=== PATIENT | female | born 1985 | race Caucasian/White ===

== ENCOUNTER 2017-07-01 09:05 | Emergency (ER) | payer SELFPAY ==
--- NOTE | 2017-07-01 10:20 | UC ---
Respiratory Complaint HPI - HPI Summary HPI Summary: 31 y/o female with presistent cough x 6 weeks, no improvement, chills/ low grade fevers nightly, + sinus pain/ congestion at night, no SOB, cough non- porductive. no other medication history. no recent ABX - History of Current Complaint Stated Complaint: COUGH Time Seen by Provider: 07/01/17 10:19 Hx Obtained From: Patient Hx Last Menstrual Period: 04/01/2014 ?: No Onset/Duration: Gradual Onset, Lasting Weeks Severity Initially: Moderate Severity Currently: Moderate - Allergies/Home Medications Allergies/Adverse Reactions: Allergies Allergy/AdvReac Type Severity Reaction Status Date / Time MS Amoxicillin [Amoxicillin] Allergy Intermediate Rash Verified 07/01/17 10:21 MS Sulfa Antibiotics Allergy Intermediate Rash Verified 07/01/17 10:21 [Sulfa Antibiotics] PMH/Surg Hx/FS Hx/Imm Hx Previously Healthy: Yes - Surgical History Surgical History: Yes Surgery Procedure, Year, and Place: uterine polyp removal - Social History Alcohol Use: Weekly Substance Use Type: None Smoking Status (MU): Never Smoked Tobacco Review of Systems Constitutional: Fever - low grade3, Chills Respiratory: Cough Is Patient Immunocompromised?: No All Other Systems Reviewed And Are Negative: Yes Physical Exam Triage Information Reviewed: Yes Appearance: Well-Appearing, No Pain Distress, Well-Nourished, Ill-Appearing Vital Signs Reviewed: Yes Eye Exam: Normal ENT: Positive: Pharyngeal erythema, TMs normal - + fluid behind TM, Tonsillar exudate - right side, Uvula midline. Negative: TM bulging, TM dull, TM red, Tonsillar swelling, Dental tenderness, Sinus tenderness Neck: Positive: Supple, Nontender, No Lymphadenopathy Respiratory: Positive: Chest non-tender, Lungs clear, Normal breath sounds, No respiratory distress, No accessory muscle use. Negative: Respiratory distress, Decreased breath sounds, Crackles, Rhonchi, Stridor, Wheezing, Expiration Cardiovascular: Positive: RRR, No Murmur, Pulses Normal Abdomen Description: Negative: CVA Tenderness (R), CVA Tenderness (L) Respiratory Course/Dx - Course Course Of Treatment: sinusitis with post- nasal drip, abx for low grade fevers - Differential Dx/Diagnosis Differential Diagnosis/HQI/PQRI: Airway Obstruction, Asthma, Bronchitis, CHF, Laryngitis Provider Diagnoses: acute bronchitis, sinusitis Discharge - Discharge Plan Condition: Good Disposition: HOME Prescriptions: Azithromyxin IVONNE (NF) [Z-Ivonne (Zithromax) 250 mg tabs #6] 2 tab PO .TODAY, THEN 1 DAILY #6 tab Codeine Phosphate/Guaifenesin [Guaifen-Codeine 100-10 mg/5 ml] 5 ml PO DAILY PRN #25 ml MDD 5ml PRN Reason: Cough Patient Education Materials: Antitussives (By mouth), Acute Bronchitis (ED) Referrals: No Primary Care Phys,NOPCP [Primary Care Provider] - Additional Instructions: - increase fluid intake - NO driving while taking narcotics
[2017-07-01 10:26] VITALS: BP 130/97
== END 2017-07-01 10:51 | disposition home or self-care (01) ==
LOC: UCCORT 09:05
DX: J20.9 Acute bronchitis, unspecified (principal); J32.9 Chronic sinusitis, unspecified
CPT/HCPCS: 99202; G0463

== ENCOUNTER 2018-05-13 10:18 | Emergency (ER) | payer BC ==
[2018-05-13 10:43] VITALS: BP 138/90
--- NOTE | 2018-05-13 11:13 | UC ---
Headache HPI - HPI Summary HPI Summary: 32 year old female presents with onset of "squiggly" vision disturbance to her left eye on Friday followed by a gradual onset of a right temporal headache that radiates behind her right eye approximately 30-45 minutes after onset of visual disturbance. States the visual disturbance typically resolves before the onset of the headache. Associated with some mild nausea. Describes the headache as "dull stabbing" pain. 3/10 at its maximum. State the headaches have occurred daily for the past 4 days except for Friday and have occurred approximately 09: 00-10:00 each day. Headaches typically last 3-4 hours and resolve on their own. Yesterday had a brief episode of numbness to her left hand and fingers that lasted approximately 5 minutes. She took ibuprofen today with no relief. Has history of migraines in the past but states this is completely different from her past headaches. Denies fever, chills, photophobia, phonophobia, dizziness, vertigo, speech difficulties, facial droop, chest pain, shortness of breath, abdominal pain, vomiting, or extremity weakness. - History Of Current Complaint Chief Complaint: UCHeadache Stated Complaint: VISION CHANGES Time Seen by Provider: 05/13/18 10:56 Hx Obtained From: Patient Hx Last Menstrual Period: 05/02/18 Pain Intensity: 1 - Allergies/Home Medications Allergies/Adverse Reactions: Allergies Allergy/AdvReac Type Severity Reaction Status Date / Time amoxicillin Allergy Rash Verified 05/13/18 10:41 Sulfa (Sulfonamide Allergy Rash Verified 05/13/18 10:41 Antibiotics) Home Medications: Home Medications Ibuprofen 500 mg PO ONCE 05/13/18 [History Confirmed 05/13/18] PMH/Surg Hx/FS Hx/Imm Hx Previously Healthy: Yes - Denies significant PMH - Surgical History Surgical History: Yes Surgery Procedure, Year, and Place: uterine polyp removal. APPENDECTOMY - Family History Known Family History: Positive: Non-Contributory - Social History Occupation: Employed Full-time Lives: With Family Alcohol Use: Weekly Substance Use Type: None Smoking Status (MU): Light Every Day Tobacco Smoker Amount Used/How Often: 5 CIG/DAY When Did the Patient Quit Smoking/Using Tobacco: May 2017 Review of Systems All Other Systems Reviewed And Are Negative: Yes Constitutional: Negative: Fever, Chills Eyes: Positive: Other - See HPI. Negative: Blurred Vision, Diplopia, Drainage, Eye Redness, Photophobia Respiratory: Negative: Shortness Of Breath Cardiovascular: Negative: Palpitations, Chest Pain Musculoskeletal: Negative: Arthralgia Neurological: Positive: Headache, Numbness. Negative: Weakness Is Patient Immunocompromised?: No Physical Exam - Summary Physical Exam Summary: GENERAL APPEARANCE: Well developed, well nourished, alert and cooperative, and appears to be in no acute distress. HEAD: Atraumatic. normocephalic. EYES: PERRL, EOM intact. Vision is grossly intact. EARS: External auditory canals and tympanic membranes clear, hearing grossly intact. NOSE: No nasal discharge. THROAT: Oral cavity and pharynx normal. No inflammation, swelling, exudate, or lesions. Teeth and gingiva in good general condition. NECK: Neck supple, non-tender without lymphadenopathy. CARDIAC: Normal S1 and S2. No S3, S4 or murmurs. Rhythm is regular. There is no peripheral edema, cyanosis or pallor. Extremities are warm and well perfused. Capillary refill is less than 2 seconds. LUNGS: Clear to auscultation and percussion without rales, rhonchi, wheezing or diminished breath sounds. ABDOMEN: Positive bowel sounds. Soft, nondistended, nontender. No guarding or rebound. No masses or hepatosplenomegally. MUSKULOSKELETAL: ROM intact to all extremities. No joint erythema or tenderness. Normal muscular development. Normal gait. NEUROLOGICAL: CN II-XII intact. Strength and sensation symmetric and intact throughout. Reflexes 2+ throughout. Cerebellar testing normal. SKIN: Skin normal color, texture and turgor with no lesions or eruptions. Triage Information Reviewed: Yes Vital Signs: Initial Vital Signs Temp 99.1 F 05/13/18 10:36 Pulse 96 05/13/18 10:36 Resp 17 05/13/18 10:36 BP 138/90 05/13/18 10:36 Pulse Ox 100 05/13/18 10:36 Vital Signs Reviewed: Yes Headache Course/Dx - Course Course Of Treatment: 32 year old female presents with onset of "squiggly" vision disturbance to her left eye on Friday followed by a gradual onset of a right temporal headache that radiates behind her right eye approximately 30-45 minutes after onset of visual disturbance. States the visual disturbance typically resolves before the onset of the headache. Associated with some mild nausea. Describes the headache as "dull stabbing" pain. 3/10 at its maximum. State the headaches have occurred daily for the past 4 days except for Friday and have occurred approximately 09:00-10:00 each day. Headaches typically last 3 -4 hours and resolve on their own. Yesterday had a brief episode of numbness to her left hand and fingers that lasted approximately 5 minutes. She took ibuprofen today with no relief. Has history of migraines in the past but states this is completely different from her past headaches. Denies fever, chills, photophobia, phonophobia, dizziness, vertigo, speech difficulties, facial droop , chest pain, shortness of breath, abdominal pain, vomiting, or extremity weakness. Afebrile. VSS. Exam unremarkable. Neurologically intact. Due to reported visual and sensory disturbance and change from her typical migraine presentation I am recommending further evaluation in the emergency room at this time. Patient is agreeable and elects to tranfer via private vehicle. - Differential Dx/Diagnosis Differential Diagnosis/HQI/PQRI: TIA, Subdural Hematoma, Migraine, Subarachnoid Hemorrhage, Tension Headache Provider Diagnosis: Acute headache Discharge - Sign-Out/Discharge Documenting (check all that apply): Patient Departure All imaging exams completed and their final reports reviewed: No Studies - Discharge Plan Condition: Stable Disposition: HOME-RECOMMEND TO ED Patient Education Materials: General Headache (ED) Referrals: No Primary Care Phys,NOPCP [Primary Care Provider] - Additional Instructions: With your headache being different than your past migraines as well as the visual disturbances and episode of numbness in your hand I am recommending that you go to the emergency room for further evaluation. Please go strait to the emergency room from here. - Billing Disposition and Condition Condition: STABLE Disposition: Home-Recommend to ED - Attestation Statements Provider Attestation: Per institutional requirements, I have reviewed the chart, however, I was not consulted specifically or made aware of this patient by the midlevel provider. I did not personally evaluate, interact with , or disposition this patient.
== END 2018-05-13 11:17 | disposition home health service (06) ==
LOC: UCCORT 10:18
DX: R51 Headache (principal); Z88.0 Allergy status to penicillin; Z88.2 Allergy status to sulfonamides; F17.210 Nicotine dependence, cigarettes, uncomplicated
CPT/HCPCS: 99212; G0463